=== PATIENT | male | born 1955 | race Caucasian/White ===

== ENCOUNTER → 2016-09-01 | Outpatient (CLI) | payer OTHER ==
[~2016-09-01] MED LIST: ASPI-110 PO; ATOR20TA15 PO; LISI20TA PO; NEXI20CA PO; Z.0.NO CURRENT MEDS
[2016-09-01 08:31] LABS: BLOOD GAS CARBOXYHEMOGLOBIN 1.5 % (0-4); BLOOD GAS HCO3 25 mmol/L (22-26); BLOOD GAS METHEMOGLOBIN 1.3 % (0-2); BLOOD GAS O2 HGB SATURATION 92 % (90-100); BLOOD GAS OXYGEN CONTENT 16.5 Vol % (12.0-20.0); BLOOD GAS PCO2 39 mmHG (38-42); BLOOD GAS PO2 69 mmHG (61-120); BLOOD GAS TOTAL HGB 12.8 G/DL (12.0-16.0); CRITICAL VALUE NO; DRAW SITE LT RADIAL; NUMBER OF ARTERIAL PUNCTURES 1; OXYGEN DEVICE RA; STAT NO; TEMP CORR TO 98.6; ULNAR PULSE Y
--- NOTE | 2016-09-02 08:26 | RSPPFT ---
DATE OF PROCEDURE: 09/01/16 COMMENTS: Spirometry shows FVC of 2.6 at 89% of predicted, FEV1 of 2.0 at 93%, FEV1/FVC ratio is normal. Flow is normal at FEF 25, FEF 50 and FEF 25-75. There is no response after bronchodilator treatment. Lung volumes show residual volume is normal. TLC is normal. Diffusion capacity is normal. Flow volume loop indicates a normal pattern. Room air arterial blood gases show pH of 7.4, PCO2 of 39, PO2 of 68, BiCarb of 25 and Saturation at 91%. IMPRESSION: 1. Normal spirometry. 2. No response after bronchodilator treatment. 3. Normal lung volumes. 4. Normal diffusion capacity. 5. Blood gases show hypoxia on room air.
== END ==
LOC: EDSEX → PHRSP 07:11
PROVIDERS: ATTEND Specialist
DX: R06.00 Dyspnea, unspecified (principal)
CPT/HCPCS: 36600; 82805; 94060; 94726; 94729

== ENCOUNTER → 2016-09-23 | Outpatient (CLI) | payer OTHER ==
[2016-09-23 13:58] LABS: AUTOMATED NEUTROPHIL # 5.9 TH/MM3 (1.8-7.7); BASOPHIL # 0.1 TH/MM3 (0-0.2); BASOPHIL % 0.8 % (0.0-2.0); EOSINOPHIL # 0.2 TH/MM3 (0-0.4); EOSINOPHIL % 2.2 % (0.0-4.0); HEMATOCRIT 40.2 % (35.0-46.0); HEMO FLAGS DIFF FINAL; LYMPH % 26.7 % (9.0-44.0); LYMPHOCYTE # 2.5 TH/MM3 (1.0-4.8); MEAN CELL VOLUME 87.6 FL (80.0-100.0); MEAN CORPUSCULAR HEMOGLOBIN 29.5 PG (27.0-34.0); MEAN CORPUSCULAR HGB CONC 33.7 % (32.0-36.0); MONO % 6.5 % (0.0-8.0); NEUT % 63.8 % (16.0-70.0); PLATELET COUNT 245 TH/MM3 (150-450); RED BLOOD COUNT 4.59 MIL/MM3 (4.00-5.30); RED CELL DISTRIBUTION WIDTH 13.4 % (11.6-17.2); WHITE BLOOD COUNT 9.3 TH/MM3 (4.0-11.0)
[2016-09-23 14:00] LABS: BLOOD, URINE NEG (NEG); COMMENT (UR) CULT NOT INDICATED; CULTURE IF INDICATED CULT NOT INDICATED; GLUCOSE,URINE NEG (NEG); HYALINE CAST, URINE 1 /lpf (RARE); KETONE, URINE NEG (NEG); NITRITE,URINE NEG (NEG); SQUAMOUS EPITHELIAL CELL URINE <1 /hpf (0-5); URINE COLOR YELLOW (YELLW/STRAW)
== END ==
LOC: CPRE 13:05
PROVIDERS: ATTEND Obstetrics & Gynecology
DX: Z01.812 Encounter for preprocedural laboratory examination (principal); R87.619 Unspecified abnormal cytological findings in specimens from cervix uteri; D25.9 Leiomyoma of uterus, unspecified
CPT/HCPCS: 36415; 81001; 85025

== ENCOUNTER → 2016-09-29 | Day surgery (SDC) | payer OTHER ==
--- NOTE | 2016-09-28 12:59 | MH ---
cc: RICHIE FELICIANO DATE OF ADMISSION: 09/29/2016 ADMITTING DIAGNOSIS Pap with endometrial cells and endometrial thickening. HISTORY OF PRESENT ILLNESS The patient is a 60-year-old single white female, para 1-0-0-1, with LMP in 1993. She had a Pap smear on 08/29/2016 which showed endometrial cells. A pelvic ultrasound on 09/10/2016 showed the uterus measured about 5 cm in length, endometrium of 5 mm . An initial biopsy was not feasible due to stenosis of the cervix and she is now admitted for D&C. PAST MEDICAL HISTORY PREVIOUS SURGERY 1. 1998 repair of right ankle fracture. 2. 2015 repair of left shoulder fracture. MEDICATIONS 1. Lisinopril. 2. Atorvastatin. ALLERGIES None. SERIOUS MEDICAL ILLNESSES 1. Hypertension. 2. High cholesterol. 3. Sleep apnea. TRANSFUSIONS None. OB HISTORY Vaginal delivery of a daughter in 1985. 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 Alcohol occasional. Tobacco she quit in 2006. MEDICATIONS None. PHYSICAL EXAMINATION GENERAL: A morbidly obese white female. VITAL SIGNS: Stable. HEENT: Exam is normal. CHEST: Clear. HEART: Regular rate. BREASTS: Symmetrical. ABDOMEN: Obese. PELVIC: Vagina is normal. Cervix is normal. Bimanual without mass or pain. ASSESSMENT As above. PLAN She is now admitted for outpatient hysteroscopy and D&C. While in the office I explained the procedures, the risks, benefits and complications and possible need for later treatment pending findings, explained and accepted. MD BENNY Choi/AMANDA /12:24 PM /12:42 PM SCOTT
[~2016-09-29] VITALS: Ht 162.6 cm; Wt 103.3 kg
[~2016-09-29] MED LIST changes: +*morphine SULFATE 8 MG/ML PERIprocedure ONLY ONE; +ACETAMINOPHEN 1000 MG/100 ML VIAL IV ONE; +ACETAMINOPHEN 1000 MG/100 ML VIAL IV SCH; +CHLORHEXIDINE GLUCONATE 2 % 1 PACK (2 CLOTHS) TOPICAL PRN; +DEXAMETHASONE SOD PHOS 4 MG/ML VIAL ONE; +DICLOFENAC SODIUM 37.5 MG/ML VIAL IV PUSH ONE; +DO NOT ADM ANY ANTICOAGULANT DRUGS PRN; +FAMOTIDINE 20 MG/2 ML VIAL ONE; +INSULIN HUMAN REGULAR 1,000 UNITS/10 ML VIAL SQ PRN; +LACTATED RINGER'S 1000 ML INJ 1,000 ML IV ONE; +LACTATED RINGER'S 1000 ML IV PRN; +METOCLOPRAMIDE HCL 10 MG/2 ML VIAL IV PRN; +METOPROLOL TARTRATE 25 MG TAB PO PRN; +MIDAZOLAM HCL 2 MG/2 ML VIAL ONE; +ONDANSETRON HCL 4 MG/2 ML VIAL IV PUSH ONE; +POVIDONE IODINE 5% (ANTISEPSIS KIT) 4 APPLICATIONS EACH NARE PRN; +PROPOFOL 200 MG/20 ML AMP IV ONE; +SODIUM CHLORID 0.9% 500 ML IV PRN; -Z.0.NO CURRENT MEDS; +ceFAZolin 1,000 MG/NS 100 ML IV SCH
[2016-09-29 05:49] VITALS: BP 120/80; PULSE 79; RESP 20; TEMP 97; O2SAT 96
[2016-09-29 09:15] VITALS: BP 121/81; PULSE 59; RESP 18; TEMP 97.8; O2SAT 98
--- NOTE | 2016-09-29 18:52 | EKG ---
Date Performed: 09/29/2016 Time Performed: 06:41:42 PTAGE: 60 years EKG: Sinus rhythm LEFT VENTRICULAR HYPERTROPHY AND ST-T CHANGE Compared to previous tracing, the patient has developed borderline criteria for Left ventricular hypertrophy with some lateral ST-T wave changes. There's ot herwise no significant serial change ABNORMAL ECG PREVIOUS TRACING : 10/03/2012 21.08 DOCTOR: Shanique Fitzgerald Interpretating Date/Time 09/29/2016 18:50:34
--- NOTE | 2016-09-29 19:07 | MP ---
cc: RICHIE FELICIANO DATE OF SURGERY 09/29/16 PREOPERATIVE DIAGNOSIS Pap within endometrial cells, endometrial thickening. POSTOPERATIVE DIAGNOSIS Pap within endometrial cells, endometrial thickening. Pathology pending. PROCEDURE Hysteroscopy D&C. ANESTHESIA LMA ESTIMATED BLOOD LOSS Less than 5 mL FLUIDS About 800 mL crystalloid. OBJECTIVE FINDINGS Following induction of adequate general LMA anesthesia, the patient was prepped and draped supine on the operating table in dorsal lithotomy position usual sterile fashion with the bladder being drained via catheterization. Exam revealed normal size shape anterior uterus, no adnexal masses. The cervix was exposed with handheld retractors. Anterior lip grasped with single tooth tenaculum. Cervix and uterus sounded to 7 cm. Cervix then dilated to a #17 Hanks dilator. Hysteroscope was then passed revealing normal cervix and very atrophic appearing endometrium. Scope was now withdrawn. Curettings were obtained with a small serrated curet endometrium small sharp curette and polyp forceps used to pass tissue and debris. All instruments was removed. All counts correct. The patient was taken out of [facility]. She was awaken and taken to recovery room in good condition. MD BENNY Choi/ /7:33 AM /7:01 PM MTDErickson
== END | disposition home or self-care (01) ==
LOC: EDSEX → HSDC 05:06
PROVIDERS: ATTEND Obstetrics & Gynecology
DX: R87.619 Unspecified abnormal cytological findings in specimens from cervix uteri (principal); R93.8 Abnormal findings on diagnostic imaging of other specified body structures; N88.2 Stricture and stenosis of cervix uteri; I10 Essential (primary) hypertension; E78.00 Pure hypercholesterolemia, unspecified; G47.30 Sleep apnea, unspecified; Z01.810 Encounter for preprocedural cardiovascular examination; D25.9 Leiomyoma of uterus, unspecified
CPT/HCPCS: 00952; 58558; 88305; 93005; J0131; J0690; J1100; J1130; J2250; J2270; J2405; J3010; J7120

== ENCOUNTER → 2017-01-04 | Day surgery (SDC) | payer OTHER ==
[~2017-01-04] MED LIST changes: -*morphine SULFATE 8 MG/ML PERIprocedure ONLY ONE; -ACETAMINOPHEN 1000 MG/100 ML VIAL IV ONE; -ACETAMINOPHEN 1000 MG/100 ML VIAL IV SCH; +BUPIVACAINE/EPINEPHRINE 0.25% 50 ML VIAL ONE; -CHLORHEXIDINE GLUCONATE 2 % 1 PACK (2 CLOTHS) TOPICAL PRN; -DEXAMETHASONE SOD PHOS 4 MG/ML VIAL ONE; -DICLOFENAC SODIUM 37.5 MG/ML VIAL IV PUSH ONE; -DO NOT ADM ANY ANTICOAGULANT DRUGS PRN; -FAMOTIDINE 20 MG/2 ML VIAL ONE; -INSULIN HUMAN REGULAR 1,000 UNITS/10 ML VIAL SQ PRN; +KETOROLAC TROMETHAMINE 30 MG/ML (IVP) VIAL IV PUSH ONE; -LACTATED RINGER'S 1000 ML IV PRN; +LIDOCAINE 2%/EPINEPHrine PF 1:200,000 20ML SDV ONE; -METOCLOPRAMIDE HCL 10 MG/2 ML VIAL IV PRN; -METOPROLOL TARTRATE 25 MG TAB PO PRN; -POVIDONE IODINE 5% (ANTISEPSIS KIT) 4 APPLICATIONS EACH NARE PRN; -SODIUM CHLORID 0.9% 500 ML IV PRN; +VANCOMYCIN HCL 1000 MG VIAL ONE; -ceFAZolin 1,000 MG/NS 100 ML IV SCH; +ceFAZolin INJ 1,000 MG VIAL ONE
== END | disposition home or self-care (01) ==
LOC: EDSEX → ESDC 06:39
PROVIDERS: ATTEND Surgery Trauma Surgery
DX: D17.21 Benign lipomatous neoplasm of skin and subcutaneous tissue of right arm (principal)
CPT/HCPCS: 00400; 24071; 25071; 88304; J0690; J1885; J2250; J2405; J3010; J3370; J7120; 88305

== ENCOUNTER 2017-06-10 08:54 | Emergency (ER) | payer OTHER ==
[~2017-06-10] VITALS: Ht 162.6 cm; Wt 106.6 kg
[~2017-06-10 08:54] MED LIST changes: -ASPI-110 PO; +ASPI1TAB57 PO; -BUPIVACAINE/EPINEPHRINE 0.25% 50 ML VIAL ONE; -KETOROLAC TROMETHAMINE 30 MG/ML (IVP) VIAL IV PUSH ONE; -LACTATED RINGER'S 1000 ML INJ 1,000 ML IV ONE; -LIDOCAINE 2%/EPINEPHrine PF 1:200,000 20ML SDV ONE; -MIDAZOLAM HCL 2 MG/2 ML VIAL ONE; -ONDANSETRON HCL 4 MG/2 ML VIAL IV PUSH ONE; -PROPOFOL 200 MG/20 ML AMP IV ONE; -VANCOMYCIN HCL 1000 MG VIAL ONE; -ceFAZolin INJ 1,000 MG VIAL ONE
[2017-06-10 08:56] VITALS: PULSE 64; RESP 16; TEMP 97.5; O2SAT 100
[2017-06-10] MEDS ORDERED: MIRA50TA PO (09:15)
[2017-06-10 09:27] VITALS: BP 160/95
[2017-06-10] MEDS ORDERED: ACETAMINOPHEN 325 MG TAB PO ONE (09:45)
--- NOTE | 2017-06-10 09:53 | PD ---
HPI Chief Complaint: Pain: Acute or Chronic Time Seen by Provider: 09:26 Travel History International Travel<30 days: No Contact w/Intl Traveler<30days: No Traveled to known affect area: No History of Present Illness HPI 61-year-old female presents to the emergency department for evaluation of right ankle pain. Patient states she had surgery with plates and screws back in 1998. She states that for the past week or so, she has been noticing worsening pain in the right ankle, worse at night. She states that night, the pain is sharp and will radiate up the leg. She states that currently the pain is 5/10, throbbing to the right ankle without radiation. Patient states movement also worsen the pain. Patient denies any recent injury. No erythema. No warmth. No fevers or chills. She has not yet followed up with her surgeon. Moderate severity. PFSH Past Medical History Hx Anticoagulant Therapy: Yes (BABY ASA DAILY) Cancer: No Cardiovascular Problems: Yes (HTN, CHOL) High Cholesterol: Yes Diabetes: No Endocrine: No Gastrointestinal Disorders: Yes (acid reflux, upper/lower endoscopy (routine)) GERD: Yes Genitourinary: Yes (frequency/urgency) Hepatitis: No Hiatal Hernia: No Hypertension: Yes (and chol) Immune Disorder: No Musculoskeletal: Yes (chronic back pain due to 2 deteriorated discs) Neurologic: No Psychiatric: No Respiratory: Yes (sleep apnea-does not have BIPAP at this time) Sleep Apnea: Yes Thyroid Disease: No Tetanus Vaccination: < 5 Years Influenza Vaccination: Yes ?: Not Past Surgical History Abdominal Surgery: No AICD: No Body Medical Devices: R ankle plates and screws Cardiac Surgery: No Ear Surgery: No Eye Surgery: No Genitourinary Surgery: No Gynecologic Surgery: No Joint Replacement: No Oral Surgery: Yes (upper dentures, tonsillectomy) Pacemaker: No Thoracic Surgery: No Tonsillectomy: Yes Social History Alcohol Use: Yes (socially) Tobacco Use: No Substance Use: No Allergies-Medications (Allergen,Severity, Reaction): Coded Allergies: No Known Allergies (Unverified Adverse Reaction, Unknown, 06/10/17) Reported Meds & Prescriptions Reported Meds & Active Scripts Active Reported Myrbetriq (Mirabegron) 50 Mg Tab 50 Mg PO DAILY Aspirin 81 (Aspirin) 81 Mg Tabdr 81 Mg PO DAILY Nexium (Esomeprazole DR) 20 Mg Capdr 20 Mg PO DAILY PRN Atorvastatin (Atorvastatin Calcium) 20 Mg Tab 20 Mg PO HS Lisinopril-Hctz 20-12.5 Mg Tab 1 Tab PO DAILY Review of Systems Except as stated in HPI: all other systems reviewed are Neg Physical Exam Narrative GENERAL: Well-nourished, well-developed female patient, afebrile. SKIN: Focused skin assessment warm/dry. No erythema or warmth over right ankle. HEAD: Normocephalic. Atraumatic. EYES: No scleral icterus. No injection or drainage. NECK: Supple, trachea midline. No JVD or lymphadenopathy. CARDIOVASCULAR: Regular rate and rhythm without murmurs, gallops, or rubs. Right pedal pulse is 2+. Capillary refill less than 2 seconds to the distal aspect of the right foot. RESPIRATORY: Breath sounds equal bilaterally. No accessory muscle use. Lungs sounds are clear to auscultation. GASTROINTESTINAL: Abdomen soft, non-tender, nondistended. MUSCULOSKELETAL: No cyanosis, or edema. Tenderness over right lateral ankle. Patient has full sensation to the distal right lower extremity. BACK: Nontender without obvious deformity. No CVA tenderness. Data Data Last Documented VS Vital Signs Date Time Temp Pulse Resp B/P (MAP) Pulse Ox O2 Delivery O2 Flow Rate FiO2 06/10/17 09:27 160/95 (116) 06/10/17 08:56 97.5 64 16 100 Orders Orders Ankle, Complete ([id number]) (06/10/17 ) Acetaminophen (Tylenol) (06/10/17 09:45) Splint Or Brace Apply/Monitor (06/10/17 10:24) [facility] Medical Decision Making Medical Screen Exam Complete: Yes Emergency Medical Condition: Yes Medical Record Reviewed: Yes Interpretation(s) X-ray of the right ankle - CONCLUSION: Status post previous ankle surgery with no evidence of hardware complication or loosening. No osseous or soft tissue injury is identified.. Differential Diagnosis Chronic ankle pain versus ankle fracture versus ankle dislocation Narrative Course 61-year-old female presents to the emergency department for evaluation of right ankle pain. She has history of surgery to the right ankle, but no recent injury. There is no evidence of septic joint on exam. X-ray of the right ankle is ordered and pending. Patient declined ibuprofen stating that she has an empty stomach. She is given Tylenol 650 mg by mouth. X-ray of the right ankle shows no acute osseous injury, no complication of hardware. I discussed results with the patient. She is instructed to follow- up with an orthopedist for further evaluation. Patient verbalizes agreement. She is provided Lyle bandage. The patient was discharged in stable condition with instructions, including return instructions and follow up instructions. Diagnosis Primary Impression: Right ankle pain Qualified Codes: M25.571 - Pain in right ankle and joints of right foot Referrals: Orthopedist call for appointment Patient Instructions: Ankle Sprain (ED), General Instructions Additional Instructions: Try heating pad on low for 20 minutes 4-5 times daily. [id number] Tylenol/ibuprofen as needed for pain. Wear Lyle bandage as needed for support. Follow-up with an orthopedist. Return to the emergency department for any acute worsening of symptoms per Med/Other Pt SpecificInfo: No Change to Meds Disposition: 01 DISCHARGE HOME Condition: Stable Kaycee Grullon Jun 10, 2017 09:53
--- NOTE | 2017-06-10 10:19 | RADRPT ---
EXAM DATE/TIME: 06/10/2017 09:51 [place] COMPARISON: No previous studies available for comparison. INDICATIONS : Right ankle pain, no known injury MEDICAL HISTORY : None. SURGICAL HISTORY : Right ankle surgery ENCOUNTER: Initial ACUITY: 2 weeks PAIN SCORE: 7/10 LOCATION: Right ankle FINDINGS: Three view exam was performed of the right ankle. The bony structures are in normal alignment. No e vidence of fracture, dislocation, or soft tissue swelling. Surgical hardware traverses the distal fi bula and within the posterior and medial malleolus. No evidence of hardware loosening. No complicatin g features are seen. The ankle mortise is intact. Bony mineralization is normal. CONCLUSION: Status post previous ankle surgery with no evidence of hardware complication or loosening. No osseous or soft tissue injury is identified.. Akiko Alvarenga MD on June 10, 2017 at 10:16 Board Certified Radiologist. This report was verified electronically.
== END 2017-06-10 10:36 | disposition home or self-care (01) ==
LOC: PHEFT 08:54
DX: M25.571 Pain in right ankle and joints of right foot (principal); I10 Essential (primary) hypertension; E78.00 Pure hypercholesterolemia, unspecified; K21.9 Gastro-esophageal reflux disease without esophagitis; G47.30 Sleep apnea, unspecified; Z98.890 Other specified postprocedural states; Z79.82 Long term (current) use of aspirin; Z87.19 Personal history of other diseases of the digestive system; Z87.448 Personal history of other diseases of urinary system; Z87.39 Personal history of other diseases of the musculoskeletal system and connective tissue
CPT/HCPCS: 73610; 99283